=== PATIENT | female | born 1945 | race Caucasian/White ===

== ENCOUNTER 2020-03-28 22:52 | Emergency (ER) | payer OTHER ==
[~2020-03-28] VITALS: Ht 152.4 cm; Wt 72.6 kg
[~2020-03-28 22:52] MED LIST: ATOR10TA PO; FLUO20CA19 PO; FLUO5CRE EX; LISI-706 PO; METO-169 PO; METO25TA93 PO
[2020-03-28 23:09] VITALS: BP 159/88
== END 2020-03-29 04:33 | disposition left against medical advice (07) ==
LOC: ER 22:52
DX: M79.89 Other specified soft tissue disorders (principal); Z53.21 Procedure and treatment not carried out due to patient leaving prior to being seen by health care provider
CPT/HCPCS: 93971